=== PATIENT | female | born 1990 | race Caucasian/White ===

== ENCOUNTER 2023-10-08 20:45 | Emergency (ER) | payer SELFPAY ==
[2023-10-08 20:45] VITALS: BMI 19.6
[2023-10-08 20:47] VITALS: BP 124/84
[2023-10-08] MEDS: TORADOL 30 MG IV (21:24)
[2023-10-08 21:26] LABS: % Basophils 0.5 % (0-2); % Eosinophils 0.5 % (0-6); % Immature Granulocytes 0.3 % (0-0.5); % Lymphocytes 11.5 % (20.5-51.1); % Monocytes 4.4 % (1.7-9.3); % Neutrophils 82.8 % (42.2-75.2); Absolute Lymphocytes 0.8 10^3/uL (1.2-3.4); Absolute Monocytes 0.3 10^3/uL (0.1-0.6); Hematocrit 39.7 % (37.0-47.0); Hemoglobin 14.3 g/dL (12.0-16.0); Mean Corpuscular Hgb 31.3 pg (27.0-31.0); Mean Corpuscular Volume 86.9 fL (81.0-99.0); Mean Platelet Volume 8.7 fL (7.4-10.4); Nucleated Red Blood Cells % 0 %; Platelet Count 277 10^3/uL (130-400); Red Blood Cell Count 4.57 10^6/uL (4.20-5.40); Red Cell Dist. Width 11.8 % (11.5-14.5); White Blood Cell Count 7.3 10^3/uL (4.8-10.8)
[2023-10-08] MEDS: NSS 1000 IV (21:28)
[2023-10-08] MEDS: OMNIPAQUE 50 ML PO (21:32)
[2023-10-08] MEDS: ZOFRAN 4 MG IV ×2 (21:35→22:47)
[2023-10-08 21:37] LABS: HCG, Serum Qualitative Screen Negative
[2023-10-08 21:42] LABS: ALT (SGPT) 19 U/L (0-35); AST (SGOT) 23 U/L (14-36); Albumin 4.4 g/dl (3.5-5.0); Alkaline Phosphatase 78 U/L (38-126); Blood Urea Nitrogen 17 mg/dl (7-17); Calcium 9.4 mg/dl (8.4-10.2); Carbon Dioxide 25 mmol/L (22-30); Chloride 98 mmol/L (98-107); Glucose 102 mg/dl (70-99); Potassium 3.3 mmol/L (3.5-5.1); Sodium 136 mmol/L (135-145); Total Bilirubin 1.5 mg/dl (0.2-1.3); Total Protein 7.2 g/dl (6.3-8.2); eGFR > 60.00
[2023-10-08] MEDS: OFIRMEV 1000 MG IV (22:48)
[2023-10-08 23:20] LABS: Urine Albumin Negative (Neg - Trace); Urine Bilirubin 1+ (Negative); Urine Character Clear (Clear); Urine Color Yellow; Urine Glucose Negative (Negative); Urine Ketone Trace (Negative); Urine Leukocyte Negative (Negative); Urine Nitrite Negative (Negative); Urine Occult Blood Negative (Negative); Urine Urobilinogen 1+ (Neg - 1+); Urine pH 6.5 (5.0-9.0)
[2023-10-09 00:30] VITALS: BP 114/55
--- NOTE | 2023-10-09 00:48 | ED.GENMED ---
History of Present Illness
General
Chief Complaint: Abdominal Pain
Source: patient
Exam Limitations: none
Time Seen by Provider: 10/08/23 20:59
Travel History
Have you had any contact with someone who has COVID-19?: No
Do you have any symptoms of coronavirus? Fever > 100 degrees, chills, cough, shortness of breath, sore throat, loss of taste or smell, muscle aches, or headache?: No
History of Present Illness
History of Present Illness:
This is a 32 year old female that comes in with c/o right lower abd pain and vomiting. States that this started on Monday. States that she got up fine and after eating about 30 min she started with vomiting. States that the pain was on and off all
day. States that she has not been able to keep anything down. State that she had severe pain, felt hoe and felt like she was going to pass out. States that she has chills, nausea, vomiting, and diarrhea. States that she was also lightheaded. Denies
any fever, chest pain, SOB, headache, urinary burning.
Past History
Past History
ED Past Medical History: HTN and Other (Renal calculus)
ED Past Surgical History: Gynecological (tubal ) and Other (Hernia repair)
Social History
Tobacco: Non-smoker
Alcohol: None
Personal: Single
Living: with family
Review of Systems
Review of Systems
All Other Systems: ROS reviewed and negative except as documented in HPI and ROS
Constitutional: Reports chills; Denies fever
EENT: Reports no symptoms
Respiratory: Denies cough or trouble breathing
Cardiac: Reports no symptoms; Denies chest pain
ABD/GI: Reports abdominal pain, nausea, vomiting and diarrhea
: Reports no symptoms; Denies dysuria, frequency or urgency
Musculoskeletal: Reports no symptoms
Skin: Reports no symptoms
Neurological: Reports other (Lightheaded); Denies headache
Psychiatric: Reports no symptoms
Phy Exam
General Physical Exam
General Presentation: mild distress
General age: appears stated age
General Skin: warm and dry
General Habitus: normal
General Mental: alert
General Hydration: appears well hydrated
ENT Exam
ENT Exam: TM's normal, pharynx normal and neck supple
Eye Exam
Eye Exam: EOMI
Cardiovascular Exam
Cardiovascular Exam: regular rate/rhythm, no edema, no murmur and normal peripheral pulses
Pulmonary Exam
Pulmonary Exam: lungs clear, no respiratory distress, no rales, chest non tender, no crackles, no rhonchi, no wheezing and no cough
Gastrointestinal Exam
Gastrointestinal Exam: normal bowel sounds, soft, no organomegaly, no pulsatile mass, non distended and tender (Right lower abd tenderness with palpation)
Musculoskeletal Exam
Musculoskeletal Exam: full ROM and no edema
Skin Exam
Skin Exam: normal color, warm/dry, no rash and no petechia
Psychiatric Exam
Psychiatric Exam: normal mood/affect
Course
Orders/Labs/Results
Orders:
Orders
10/08/23 21:12
0.9% Sodium Chloride 1000 ml [Nss] 1,000 ml IV BOLUS
Iohexol [Omnipaque] See Protocol PO NOW STA
Ketorolac [Toradol] 30 mg IV NOW STA
Test Result ONCE
10/08/23 21:17
Complete Blood Count/With Diff Urgent
Comprehensive Metabolic Panel Urgent
HCG, Serum Qualitative Screen Urgent
10/08/23 21:21
Ondansetron Injectable [Zofran] 4 mg .ROUTE .STK-MED ONE
10/08/23 21:28
Ondansetron Injectable [Zofran] 4 mg IV NOW STA
10/08/23 22:43
Acetaminophen 1000MG/100Ml [Ofirmev] 1,000 mg in 100 ml .ROUTE .STK-MED
10/08/23 22:45
Ondansetron Injectable [Zofran] 4 mg IV NOW STA
10/08/23 22:48
Acetaminophen 1000MG/100Ml [Ofirmev] 1,000 mg IV NOW STA
10/08/23 23:06
Urinalysis Reflex To Culture Urgent
Date Specimen was Collected: 10/08/23
Time Specimen was Collected: 23:00
10/09/23 00:00
CT Abd/pel W Iv And Oral Contr Urgent
Reason For Exam: Right lower abd pain
10/09/23 00:53
US Pelvis Only (non-obstetric) Urgent
Comment:
Reason For Exam: right lower abd pain
Abnormal Lab Results
10/08/23 10/08/23
21:17 23:06
MCH 31.3 H pg
(27.0-31.0)
Absolute Lymphs (auto) 0.8 L 10^3/uL
(1.2-3.4)
Neutrophils % 82.8 H %
(42.2-75.2)
Lymphocytes % 11.5 L %
(20.5-51.1)
Potassium 3.3 L mmol/L
(3.5-5.1)
Glucose 102 H mg/dl
(70-99)
Total Bilirubin 1.5 H mg/dl
(0.2-1.3)
Urine Ketones Trace A
(Negative)
Urine Bilirubin 1+ A
(Negative)
10/08/23 21:17
10/08/23 21:17
Potassium slightly low, Glucose nonfasting. Total pedrito slightly elevated. Urine negative for infection. HCG negative.
Vital Signs
Initial and Last Documented VS:
Initial Vital Signs
Temp Pulse Resp BP Pulse Ox
99.1 F 111 24 124/84 96
10/08/23 20:47 10/08/23 20:47 10/08/23 20:47 10/08/23 20:47 10/08/23 20:47
Last Documented Vital Signs
Temp Pulse Resp BP Pulse Ox
99.1 F 71 14 106/64 96
10/08/23 20:47 10/09/23 01:00 10/08/23 21:15 10/09/23 01:00 10/09/23 01:00
MDM/Problems Addressed
Differential Diagnosis Includes:
Appendicitis, Ovarian cyst, Ovarian cyst rupture. Renal calculus
MDM/Problems Addressed:
This is a 32 year old female that comes in with c/o right lower abd pain. States that this started on Monday and was on and off all day. States that she has nausea and vomiting with diarrhea.
Will get labs CT and Ultrasound. Will medicate for pain and given IV fluids.
Back into see patient again. Told patient earlier that her CT was normal. US is also normal. Blood work shows a slightly low Potassium Encouraged patient to eat bananas and green leafy vegetables. Patient can use Tylenol or Ibuprofen for pain.
Follow up with the family doctor for recheck. Patient to return with any concerns.
Chronic conditions affecting care:
NA
Acute Exacerbation and/or Progression of Chronic Illness:
NA
*Radiology
Radiology exam reviewed: radiology read reviewed (CT night hawk- No acute abnormality within the abd or pelvis. No bowel obstruction. Normal gallbladder and appendix. Incidentals: No obstructive uropathy. No hepatic or pancreatic mass. No abd aortic
aneurysm. No acute osseous abnormality. No acute abnormality within the visualized lungs. No acute ) and all reviewed NAD by ED Provider (Ct cont- No acute abnormality within the visualized soft tissue. US- night hawk- No evidence of ovarian
torsion. Normal flow to the bilateral ovaries. No free fluid identified. )
*Pulse Oximetry
Patient hypoxic: no
*EKG
Interpreted by ED Provider?: NA
Rate: EKG- N/A
*Software Tools Developer Interpretation
Rate: normal
Heart Rate: 80
Rhythm: sinus
*Critical Care Note
Total Time (30-74mins, 75-104mins- exclusive of procedures): Not Applicable
ED Attending Note
-
Portions of this chart may have been created with voice recognition software.� Occasional wrong word or��sound alike� substitutions may have occurred due to the inherent limitations of voice recognition software.
Discharge Plan
Departure
Patient Disposition: Home (Routine Discharge)
Date of Disposition: 10/09/23
Time of Disposition: 01:37
Patient with high blood pressure during this ER visit?: No
Condition: Good
Covid-19: Not Applicable
Discharge Problem:
Right lower quadrant abdominal pain
Instructions: Abdominal Pain
Referrals:
UNKNOWN - PT DOES,NOT KNOW [Family Provider] -
Stand Alone Forms: Return to Work
Activity Restrictions/Additional Instructions:
As discussed, your blood work shows that your potassium is slightly low. Please eat some banana's daily and increase the green leafy vegetable. Your CT of the abd pelvis is normal along with your Ultrasound. There is no obvious reason for your
pain. You may use Tylenol or Ibuprofen for pain. Follow up with the family doctor for recheck. IF YOU HAVE ANY OTHER CONCERNS PLEASE RETURN TO THE EMERGENCY ROOM.
Interventions
Interventions:
*Risk Screen - Suicide Last Done: 10/08/23 20:47
*General Assessment Last Done: 10/08/23 20:47
*Neglect/Abuse Screening Last Done: 10/08/23 20:47
ED- Fall Risk Assessment Last Done: 10/08/23 21:08
*ED COVID-19 Vaccine History Last Done: 10/09/23 02:11
*Nursing Disposition Last Done: 10/09/23 02:11
PJ-Nemctn-Fxoepvnkzf Assessment Last Done: 10/08/23 21:08
Discharge Date and Time
Discharge Date/Time: 10/09/23 02:13
[2023-10-09 01:00] VITALS: BP 106/64
== END 2023-10-09 02:13 | disposition home or self-care (01) ==
LOC: EMR 20:45
PROVIDERS: Clinical Nurse Specialist Family Health; EMERGENCY PHYSICIAN Student in an Organized Health Care Education/Training Program
DX: R10.31 Right lower quadrant pain (principal)
CPT/HCPCS: 99285; 96374; 96375; 96361; 96376; 74177; 76856; 80053; 81003; 84703; 85025; Q9967

== ENCOUNTER 2024-04-29 19:53 | Emergency (ER) | payer OTHER, SELFPAY ==
[2024-04-29 20:06] VITALS: BP 133/79
[2024-04-29 20:21] LABS: % Basophils 0.8 % (0-2); % Eosinophils 1.3 % (0-6); % Immature Granulocytes 0.3 % (0-0.5); % Lymphocytes 20.1 % (20.5-51.1); % Monocytes 5.2 % (1.7-9.3); % Neutrophils 72.3 % (42.2-75.2); Absolute Basophils 0.1 10^3/uL (0-0.2); Absolute Eosinophils 0.1 10^3/uL (0-0.7); Absolute Lymphocytes 1.6 10^3/uL (1.2-3.4); Absolute Monocytes 0.4 10^3/uL (0.1-0.6); Absolute Neutrophils 5.6 10^3/uL (1.4-6.5); Hematocrit 36.5 % (37.0-47.0); Hemoglobin 12.9 g/dL (12.0-16.0); Mean Corp Hgb Conc. 35.3 g/dL (33.0-37.0); Mean Corpuscular Hgb 30.7 pg (27.0-31.0); Mean Corpuscular Volume 86.9 fL (81.0-99.0); Mean Platelet Volume 9.4 fL (7.4-10.4); Nucleated Red Blood Cells % 0 %; Platelet Count 251 10^3/uL (130-400); Red Cell Dist. Width 11.9 % (11.5-14.5); White Blood Cell Count 7.7 10^3/uL (4.8-10.8)
[2024-04-29 20:50] LABS: ALT (SGPT) 15 U/L (0-35); AST (SGOT) 23 U/L (14-36); Albumin 4.3 g/dl (3.5-5.0); Alkaline Phosphatase 75 U/L (38-126); Blood Urea Nitrogen 23 mg/dl (7-17); Calcium 9.3 mg/dl (8.4-10.2); Carbon Dioxide 25 mmol/L (22-30); Chloride 102 mmol/L (98-107); Glucose 102 mg/dl (70-99); Potassium 3.6 mmol/L (3.5-5.1); Sodium 136 mmol/L (135-145); Total Bilirubin 0.4 mg/dl (0.2-1.3); Total Protein 6.9 g/dl (6.3-8.2); eGFR > 60.00
--- NOTE | 2024-04-29 22:29 | ED.GENMED ---
History of Present Illness
General
Chief Complaint: Skin Problem
Source: patient
Exam Limitations: none
Time Seen by Provider: 04/29/24 22:23
History of Present Illness
History of Present Illness:
See MDM
Past History
Past History
ED Past Medical History: HTN and Other (Renal calculus)
ED Past Surgical History: Gynecological (tubal ) and Other (Hernia repair)
Social History
Tobacco: Non-smoker
Alcohol: None
Personal: Single
Living: with family
Phy Exam
Physical Exam
Physical Exam:
See MDM
Course
Orders/Labs/Results
Orders:
Orders
04/29/24 20:14
Complete Blood Count/With Diff Urgent
Comprehensive Metabolic Panel Urgent
04/29/24 22:27
Amoxicillin 875 mg/Clav 125 mg [Augmentin 875 mg/125 mg] 1 tablet PO NOW STA
Tetanus/Diphth/Acelpertussis [Adacel] 0.5 ml IM .ONCE ONE
Abnormal Lab Results
04/29/24
20:14
Hct 36.5 L %
(37.0-47.0)
Lymphocytes % 20.1 L %
(20.5-51.1)
BUN 23 H mg/dl
(7-17)
Creatinine 1.1 H mg/dL
(0.6-1.0)
Glucose 102 H mg/dl
(70-99)
04/29/24 20:14
04/29/24 20:14
Vital Signs
Initial and Last Documented VS:
Initial Vital Signs
Temp Pulse Resp BP Pulse Ox
98.1 F 76 18 133/79 98
04/29/24 20:06 04/29/24 20:06 04/29/24 20:06 04/29/24 20:06 04/29/24 20:06
Last Documented Vital Signs
Temp Pulse Resp BP Pulse Ox
98.1 F 76 18 133/79 98
04/29/24 20:06 04/29/24 20:06 04/29/24 20:06 04/29/24 20:06 04/29/24 20:06
MDM/Problems Addressed
Differential Diagnosis Includes:
HPI and MDM Narrative:
33-year-old female presenting for swelling of her right hand from a cat bite. She was bit 24 hours ago and was nervous based on the amount of swelling. Patient was helping her elderly friend move some of her feral cat from 1 room to another room.
The cat bit her on the dorsum of her right hand and the proximal aspect of her left index finger. She denies fevers but states the area is throbbing. She is unsure about her tetanus shot and the kittens rabies shots. Patient states she can
reliably keep an eye on this cat to assess for any evidence of rabies or early over the next 2 weeks
Physical exam
General: Well appearing and non-toxic
HEENT: protecting airway
Neck: appears supple
CV: No evidence of cyanosis
Resp: No accessory muscle use
Abd: Non-distended
Extremities: Mild swelling to dorsum of right hand
Neuro: alert
Psych: Normal affect
Skin: 5 cm circumferential erythema to dorsum of right hand with 2 distinct fang bites. Extremity neurovascular intact. Small bite noted to proximal left index finger with mild erythema
Problems Addressed including Acute and Chronic Conditions affecting care:
1. Cat bite
Acuity: acute
Prognosis: unstable
Details: Given the progression of erythema over the past 24 hours, will start Augmentin. Tetanus updated. Will refrain from rabies given that she can keep an eye on the cat. She was given strict return precautions
Differential Diagnosis (but not limited to): cellulitis, cat bite, developing abscess
Testing considered:
Drug therapy (if applicable): OTC meds, please see d/c instruction regarding Rx drugs
Amount and/or Complexity of Data Reviewed
Clinical info obtained from: Patient
External data reviewed: N/A
Labs I independently reviewed (but not limited to): wbc normal
Radiology: N/A
Pulse Ox: not hypoxic
EKG independently reviewed: N/A
Application Development Liaison: N/A
Critical Care: N/A
Risk of Complication:
Social Determinants of health: Good social support
Discussed with other providers: N/A
Escalation of Care includes Admit/Obs: After being observed in the Emergency Department, pt stable for discharge.
Occasional wrong word or 'sound a like' substitutions may have occurred due to the inherent limitations of voice recognition software. Read the chart carefully and recognize, using context, where substitutions have occurred.
*Critical Care Note
Total Time (30-74mins, 75-104mins- exclusive of procedures): Not Applicable
ED Attending Note
-
Portions of this chart may have been created with voice recognition software.� Occasional wrong word or��sound alike� substitutions may have occurred due to the inherent limitations of voice recognition software.
Discharge Plan
Departure
Patient Disposition: Home (Routine Discharge)
Date of Disposition: 04/29/24
Time of Disposition: 22:34
Patient with high blood pressure during this ER visit?: No
Discharge Problem:
Cat bite of right hand with infection
Instructions: Animal Bites ED
Prescriptions:
New
amoxicillin-pot clavulanate 875-125 mg tablet
1 tab PO BID Qty: 14 0RF
Referrals:
NONE,* [Family Provider] -
Activity Restrictions/Additional Instructions:
Watch for worsening signs of infection: fever over 100.5', increasing pain, red streaks around wound, swelling, or increasing drainage of pus. If any of these happen, return to ED promptly. Make sure that you take all your antibiotics as directed
and finish your prescription even if you feel better before the bottle is empty
Interventions
Interventions:
*Risk Screen - Suicide Last Done: 04/29/24 20:06
*General Assessment Last Done: 04/29/24 20:06
*Neglect/Abuse Screening Last Done: 04/29/24 20:06
ED-Skin Assessment Last Done: 04/29/24 22:04
Discharge Date and Time
Print Language: HEBREW
[2024-04-29] MEDS: AUGMENTIN 875 MG/125 MG 1 TABLET PO (22:48)
[2024-04-29] MEDS: ADACEL 0.5 ML IM (22:50)
== END 2024-04-29 23:13 | disposition home or self-care (01) ==
LOC: EMR 19:53
PROVIDERS: EMERGENCY PHYSICIAN Student in an Organized Health Care Education/Training Program
DX: S61.451A Open bite of right hand, initial encounter (principal); B99.9 Unspecified infectious disease; W55.01XA Bitten by cat, initial encounter; Z23 Encounter for immunization; I10 Essential (primary) hypertension; Z87.442 Personal history of urinary calculi; Z88.5 Allergy status to narcotic agent
CPT/HCPCS: 99283; 90471; 80053; 85025; 90715

== ENCOUNTER 2024-06-10 18:14 | Emergency (ER) | payer OTHER, SELFPAY ==
[2024-06-10 18:15] VITALS: BP 158/84
--- NOTE | 2024-06-10 18:32 | ED.PDOC.TRB ---
ED Provider Triage
-
Patient seen by provider in Triage?: Seen in Triage
Attestation: A medical screening examination has been initiated by a qualified medical provider. Based on the assessment performed at this time, it has been determined that an emergent medical condition may exist and the patient has been informed
that further medical evaluation and possible additional diagnostic testing may be needed.
HPI: 33yoF here with a migraine x 5 days. No relief with OTC/prescription meds. Never had a headache last this long before. Now having chest pain with R upper arm numbness today.
GENERAL: Alert , in no apparent distress
EYE: No visual abnormalities.
NECK: Trachea midline
ENT: No visible abnormalities.
LUNGS: No acute respiratory distress
NEUROLOGICAL: Alert and oriented
SKIN: Skin intact. No visible changes.
MUSCULOSKELETAL: Moving extremities normally
PSYCH: Normal and appropriate interaction.
This is a medical evaluation conducted in person to initiate diagnostic evaluation and provide initial therapeutics. Please see further documentation by the treating clinician.
Cardiac labs, EKG, and CXR ordered.
[2024-06-10 18:39] LABS: % Basophils 0.7 % (0-2); % Eosinophils 1.8 % (0-6); % Immature Granulocytes 0.2 % (0-0.5); % Lymphocytes 27.1 % (20.5-51.1); % Monocytes 7.2 % (1.7-9.3); Absolute Eosinophils 0.1 10^3/uL (0-0.7); Absolute Lymphocytes 1.6 10^3/uL (1.2-3.4); Absolute Monocytes 0.4 10^3/uL (0.1-0.6); Absolute Neutrophils 3.8 10^3/uL (1.4-6.5); Hematocrit 36.2 % (37.0-47.0); Hemoglobin 12.8 g/dL (12.0-16.0); Mean Corp Hgb Conc. 35.4 g/dL (33.0-37.0); Mean Corpuscular Hgb 31.6 pg (27.0-31.0); Mean Corpuscular Volume 89.4 fL (81.0-99.0); Mean Platelet Volume 8.8 fL (7.4-10.4); Nucleated Red Blood Cells % 0 %; Platelet Count 269 10^3/uL (130-400); Red Blood Cell Count 4.05 10^6/uL (4.20-5.40); Red Cell Dist. Width 11.8 % (11.5-14.5)
[2024-06-10 19:01] LABS: HCG, Serum Qualitative Screen Negative
[2024-06-10 19:08] LABS: ALT (SGPT) 17 U/L (0-35); AST (SGOT) 22 U/L (14-36); Albumin 4.2 g/dl (3.5-5.0); Alkaline Phosphatase 63 U/L (38-126); Blood Urea Nitrogen 16 mg/dl (7-17); Calcium 9.2 mg/dl (8.4-10.2); Carbon Dioxide 28 mmol/L (22-30); Chloride 103 mmol/L (98-107); Glucose 58 mg/dl (70-99); Potassium 3.8 mmol/L (3.5-5.1); Sodium 142 mmol/L (135-145); Total Bilirubin 0.4 mg/dl (0.2-1.3); Total Protein 6.7 g/dl (6.3-8.2); eGFR > 60.00
[2024-06-10 19:16] LABS: Troponin I < 0.012 ng/ml
[2024-06-10 20:10] LABS: Glucose - Point of Care 132 mg/dl (70-99)
[2024-06-10 21:07] VITALS: BP 119/80; BMI 24.9
--- NOTE | 2024-06-10 22:09 | EDRN ---
Updated patient on the delay on a provider and apologized for her wait, patient is doing okay, provided a blanket for her and her daughter
[2024-06-10] MEDS: NSS 1000 IV (22:26)
[2024-06-10] MEDS: BENADRYL 25 MG IV (22:26)
[2024-06-10] MEDS: TORADOL 30 MG IV (22:26)
[2024-06-10] MEDS: COMPAZINE 5 MG IV (22:26)
[2024-06-10 22:35] VITALS: BP 100/84
--- NOTE | 2024-06-10 23:49 | ED.GENMED ---
History of Present Illness
General
Chief Complaint: Headache
Source: patient
Exam Limitations: none
Time Seen by Provider: 06/10/24 22:04
Nursing documentation reviewed up to this point in time: agreed with
History of Present Illness
History of Present Illness:
This is a 33-year-old woman who has history of migraine headaches generally well-controlled, suffers with migraine headache perhaps 3-4 times per year. Follows with her PCP as prescribed sumatriptan hand for as needed headaches. She complains of
her typical migraine headache that began 5 days ago, mild initially in onset, generalized to posterior head with occasional radiation to her forehead. Headache has persisted over the past 5 days, unrelieved with Imitrex. She is also noted some
intermittent right upper arm pain, aching in nature as well as nausea without vomiting and intermittent dull chest discomfort lower substernal region. Today she noticed intermittent black dots in her vision but no loss of vision. She denies neck
pain nor back pain, no fever no chills, no nasal congestion nor sore throat but she does note mild URI symptoms with dry cough without fever 1 week ago that resolved within 24 hours.
She denies risk of last menstrual period normal and on time 1-1/2 weeks ago.
She was evaluated in this ED April 25 after suffering a cat bite to her finger. Was placed on antibiotic and given a Tdap. Bite wound inflammation promptly resolved. She states the cat has remained well and healthy.
Her only daily medication is Lexapro.
Past History
Past History
ED Past Medical History: HTN and Other (Renal calculus; migraine headaches)
ED Past Surgical History: Gynecological (tubal ) and Other (Hernia repair)
Social History
Tobacco: Non-smoker
Alcohol: None
Personal: Single
Living: with family
Employment: Not employed
Family History
Family History: Other (Noncontributory)
Phy Exam
Physical Exam
Physical Exam:
GENERAL: 33-year-old woman appears her stated age, bright and alert, pleasant, appears in no acute distress.
EYE: pupils equal and reactive. Extraocular muscles intact anicteric
NECK: Supple, nontender, no meningismus, no significant adenopathy.
ENT: posterior pharynx is clear, oral mucosa is moist. TM clear b/l, nares have moderately boggy pale blue turbinates.
CARDIAC: Regular rate and rhythm. no murmur.
LUNGS: Clear breath sounds bilaterally, no acute respiratory distress, no wheezes/rales/rhonchi
ABDOMEN: Soft, nondistended, without focal tenderness, no r/g, no cvat. normoactive BS.
NEUROLOGICAL: Alert and oriented x3, no focal neuro deficits. Gait is steady.
SKIN: Warm and dry, normal color, skin intact. No rash.
MUSCULOSKELETAL: No C/C/E. peripheral pulses are full and equal b/l. No palpable tenderness.
PSYCH: Normal and appropriate interaction.
Course
Orders/Labs/Results
Orders:
Orders
06/10/24 18:15
EKG [Electrocardiogram (*1)] Urgent
Reason for Study: Chest Pain
06/10/24 18:16
EKG- Treatment ONCE
06/10/24 18:24
Test Result ONCE
06/10/24 18:32
Complete Blood Count/With Diff Urgent
Comprehensive Metabolic Panel Urgent
HCG, Serum Qualitative Screen Urgent
Troponin I Urgent
06/10/24 18:36
CR Chest - 2 Views Urgent
Comment:
Reason For Exam: CP
06/10/24 20:00
Bedside Glucose- Treatment ONCE
06/10/24 22:22
0.9% Sodium Chloride 1000 ml [Nss] 1,000 ml IV BOLUS
Diphenhydramine [Benadryl] 25 mg IV NOW STA
Ketorolac [Toradol] 30 mg IV NOW STA
Prochlorperazine [Compazine] 5 mg IV NOW STA
06/11/24 00:40
Dexamethasone Sod Phosphate [Decadron] 10 mg IV NOW STA
Abnormal Lab Results
06/10/24 06/10/24
18:32 20:08
RBC 4.05 L 10^6/uL
(4.20-5.40)
Hct 36.2 L %
(37.0-47.0)
MCH 31.6 H pg
(27.0-31.0)
Glucose 58 L mg/dl
(70-99)
POC Glucose 132 H mg/dl
(70-99)
06/10/24 18:32
06/10/24 18:32
Vital Signs
Initial and Last Documented VS:
Initial Vital Signs
Temp Pulse Resp BP Pulse Ox
98 F 79 16 158/84 98
06/10/24 18:15 06/10/24 18:15 06/10/24 18:15 06/10/24 18:15 06/10/24 18:15
Last Documented Vital Signs
Temp Pulse Resp BP Pulse Ox
98 F 80 16 100/84 99
06/10/24 18:15 06/10/24 22:35 06/10/24 22:35 06/10/24 22:35 06/10/24 22:35
MDM/Problems Addressed
Differential Diagnosis Includes:
33-year-old with history of migraine headaches presents with migraine headache that began 5 days ago. Accompanied with some right upper arm pain, intermittent chest discomfort, nausea without vomiting.
Unrelieved with Imitrex.
Overall well in appearance. No focal neurodeficits. No risk factors for CAD nor thromboembolism.
EKG is unremarkable. Labs are unremarkable save for borderline low glucose. Troponin is normal. Chest x-ray is unremarkable.
I suspect exacerbation of migraine which may be exacerbated by allergic rhinitis versus recent URI.
Overall well in appearance. At this point no indication for CT of the head.
Will trial IV fluids, an IV dose of Compazine, Toradol, Benadryl.
Will continue to observe.
*Radiology
Radiology exam reviewed: radiology read reviewed (Chest x-ray is unremarkable.)
*Pulse Oximetry
Patient hypoxic: no
*EKG
Interpreted by ED Provider?: Yes
Interpretation: normal
Comparison EKG: no comparison EKG present
Rate: normal
Rhythm: sinus
Gonzales: normal axis
Interval: normal interval
QRS Pattern: normal QRS
Ischemia: no ischemia
*C2 Tactical Analysis Technician Interpretation
Rate: normal
Interpretation: normal
Rhythm: sinus
*Critical Care Note
Total Time (30-74mins, 75-104mins- exclusive of procedures): Not Applicable
Update Note
Update Note:
06/11/2024 0040 AM
Patient resting comfortably. Headache has resolved. No further arm discomfort.
Will give an IV dose of Decadron in an effort to prevent rebound/recurrent headache.
Discussed importance of remaining well-hydrated on a daily basis.
Prompt follow-up with PCP for recheck.
ED Attending Note
-
Portions of this chart may have been created with voice recognition software.� Occasional wrong word or��sound alike� substitutions may have occurred due to the inherent limitations of voice recognition software.
Discharge Plan
Departure
Patient Disposition: Home (Routine Discharge)
Date of Disposition: 06/11/24
Time of Disposition: 00:41
Patient with high blood pressure during this ER visit?: No
Condition: Good
Discharge Problem:
Headache, migraine, Nonspecific chest pain
Instructions: Migraines (DC)
Prescriptions:
No Action
amoxicillin-pot clavulanate 875-125 mg tablet
1 tab PO BID Qty: 14 0RF
Referrals:
UNKNOWN - PT DOES,NOT KNOW [Family Provider] -
Activity Restrictions/Additional Instructions:
Stay well-hydrated on a daily basis.
Call your family doctor tomorrow to schedule a prompt follow-up for recheck.
Interventions
Interventions:
*Risk Screen - Suicide Last Done: 06/10/24 20:15
*Neglect/Abuse Screening Last Done: 06/10/24 20:15
ED- Fall Risk Assessment Last Done: 06/10/24 20:15
ED- Neurological Assessment Last Done: 06/10/24 20:15
Discharge Date and Time
Print Language: FRENCH
--- NOTE | 2024-06-11 00:23 | EDRN ---
Patient is sleeping soundly, Dr. baez aware, daughter at bedside.
[2024-06-11] MEDS: DECADRON 10 MG IV (00:53)
[2024-06-11 01:02] VITALS: BP 98/64
== END 2024-06-11 01:04 | disposition home or self-care (01) ==
LOC: EMR 18:14
PROVIDERS: Physician Assistant; EMERGENCY PHYSICIAN Emergency Medicine
DX: G43.909 Migraine, unspecified, not intractable, without status migrainosus (principal); R07.89 Other chest pain
CPT/HCPCS: 99285; 96374; 96375 ×3; 96361; 71046; 80053; 82962; 84484; 84703; 85025; 93005

== ENCOUNTER 2024-07-26 19:30 | Emergency (ER) | payer OTHER, SELFPAY ==
[2024-07-26 19:31] VITALS: BP 138/91
--- NOTE | 2024-07-26 19:51 | ED.SKININJ ---
HPI-Injury
General
Chief Complaint: Skin Problem
Source: patient
Exam Limitations: none
Time Seen by Provider: 07/26/24 19:36
Nursing documentation reviewed up to this point in time: agreed with
History of Present Illness-Injury
Initial Injury comments:
33 yo female with local skin infection right lower abdominal wall started 2 days ago, went to and started on Keflex, has had 4 doses so far. Feels nauseous. States area is getting worse. Denies fever, felt chills.
Past History
Past History
ED Past Medical History: HTN and Other (Renal calculus; migraine headaches)
ED Past Surgical History: Gynecological (tubal ) and Other (Hernia repair)
Social History
Tobacco: Non-smoker
Alcohol: None
Personal: Single
Living: with family
Employment: Not employed
Family History
Family History: Other (Noncontributory)
Review of Systems
Review of Systems
Allergies reviewed?: Yes
All Other Systems: ROS reviewed and negative except as documented in HPI and ROS
Constitutional: Reports chills; Denies fever
ABD/GI: Reports nausea and diarrhea (today); Denies abdominal pain or vomiting
Skin: Reports other (skin infection right lower abdomen)
Phy Exam
Physical Exam
Physical Exam:
GENERAL: No acute distress. A&Ox3.
CONSTITUTIONAL: Afebrile.
RESPIRATORY: Regular respirations, nonlabored, lungs clear.
CARDIOVASCULAR: Regular rate and rhythm, no murmurs, no rubs.
GI: Soft, nontender, normal BS
MUSCULOSKELETAL: Moves with ease. Well perfused.
SKIN: Warm, dry, pink. Tender 5 x 3 area erythema right lower abdominal wall with central 1 cm abscess.
PSYCH: Normal mood and affect. Well kept, interactive and appropriate
NEUROLOGIC: Awake, alert and oriented. No focal neurological deficits
Course
Orders/Labs/Results
Orders:
Orders
07/26/24 19:45
Ondansetron Orally Disint [Zofran Odt (Orally Disintegrating)] 4 mg PO NOW STA
07/26/24 19:46
Doxycycline [Vibramycin] 100 mg PO NOW STA
07/26/24 19:50
Acetaminophen [Tylenol] 1,000 mg PO NOW STA
Vital Signs
Initial and Last Documented VS:
Initial Vital Signs
Temp Pulse Resp BP Pulse Ox
99 F 79 16 138/91 100
07/26/24 19:31 07/26/24 19:31 07/26/24 19:31 07/26/24 19:31 07/26/24 19:31
Last Documented Vital Signs
Temp Pulse Resp BP Pulse Ox
99 F 79 16 138/91 100
07/26/24 19:31 07/26/24 19:31 07/26/24 19:31 07/26/24 19:31 07/26/24 19:31
Procedures
Incision/Drainage/Joint Aspiration
R lower abdominal wall:
Anethesia: 1% Lidocaine with Epi
Preparation: cleaned with alcohol wipe
Type of procedure: incise (tiny 2-3 mm puncture, purulent drainage expressed) and drain
Nature of site: abscess
Description of abscess: less than 3cm
How much fluid was obtained?: small amount
Fluid description: purulent
Treatment: antibiotics started and bandaid applied
MDM/Problems Addressed
MDM/Problems Addressed:
33 yo female with local skin infection right lower abdominal wall started 2 days ago, went to and started on Keflex, has had 4 doses so far. Feels nauseous. States area is getting worse. Denies fever, felt chills.
Area consistent with small abscess, surrounding erythema
Area drained, Keflex DC'd, rx for Doxycycline sent to her pharmacy
*Critical Care Note
Total Time (30-74mins, 75-104mins- exclusive of procedures): Not Applicable
ED Attending Note
-
Portions of this chart may have been created with voice recognition software.� Occasional wrong word or��sound alike� substitutions may have occurred due to the inherent limitations of voice recognition software.
Discharge Plan
Departure
Patient Disposition: Home (Routine Discharge)
Date of Disposition: 07/26/24
Time of Disposition: 20:16
Patient with high blood pressure during this ER visit?: No
Condition: Good
Discharge Problem:
Abdominal wall abscess
Instructions: Wound Care (DC), Skin Abscess
Prescriptions:
New
doxycycline hyclate 100 mg capsule
100 mg PO BID Qty: 14 0RF
No Action
amoxicillin-pot clavulanate 875-125 mg tablet
1 tab PO BID Qty: 14 0RF
Referrals:
Penny Nieto, DO [Family Provider] - As needed
Activity Restrictions/Additional Instructions:
As we discussed, stop the Keflex.
I sent a prescription to your pharmacy for doxycycline 100 mg to take twice a day for 7 days.
See your doctor return here immediately if the area gets more red, more painful, you seems worse in any way.
Warm moist compresses to the area 3 times a day for the next 2 days, warm baths or shower water to run over the area.
Interventions
Interventions:
*Risk Screen - Suicide Last Done: 07/26/24 19:31
*General Assessment Last Done: 07/26/24 19:31
*Neglect/Abuse Screening Last Done: 07/26/24 19:31
ED- Fall Risk Assessment Last Done: 07/26/24 20:35
*ED COVID-19 Vaccine History Last Done: 07/26/24 20:35
*Nursing Disposition Last Done: 07/26/24 20:36
ED-Skin Assessment Last Done: 07/26/24 20:35
Discharge Date and Time
Discharge Date/Time: 07/26/24 20:37
Print Language: AZERI
[2024-07-26] MEDS: TYLENOL 1000 MG PO (19:59)
[2024-07-26] MEDS: VIBRAMYCIN 100 MG PO (19:59)
[2024-07-26] MEDS: ZOFRAN ODT (ORALLY DISINTEGRATING) 4 MG PO (19:59)
== END 2024-07-26 20:37 | disposition home or self-care (01) ==
LOC: EMR 19:30
PROVIDERS: EMERGENCY PHYSICIAN Emergency Medicine; FAMILY PHYSICIAN Family Medicine
DX: L02.211 Cutaneous abscess of abdominal wall (principal)
CPT/HCPCS: 99283; 10060

== ENCOUNTER 2025-03-17 16:37 | Emergency (ER) | payer OTHER, SELFPAY ==
[2025-03-17 16:47] VITALS: BP 121/80
--- NOTE | 2025-03-17 18:32 | ED.MUSCINJ ---
HPI-Injury
General
Chief Complaint: Musculo-Skeletal Complaint
Source: patient
Exam Limitations: none
Time Seen by Provider: 03/17/25 18:10
Nursing documentation reviewed up to this point in time: agreed with
History of Present Illness-Injury
Is this injury a work related problem?: No
Is pt an associate of [facility]/[place]?: No
Initial Injury comments:
Patient states she developed sudden onset of pain to right posterior ribs after sneezing. Incident occurred this afternoon. Brought self to ED for eval.
Past History
Past History
ED Past Medical History: HTN and Other (Renal calculus; migraine headaches)
ED Past Surgical History: Gynecological (tubal ) and Other (Hernia repair)
Social History
Tobacco: Non-smoker
Alcohol: None
Personal: Single
Living: with family
Employment: Not employed
Family History
Family History: Other (Noncontributory)
Review of Systems
Review of Systems
Allergies reviewed?: Yes
All Other Systems: ROS reviewed and negative except as documented in HPI and ROS
Constitutional: Reports no symptoms
EENT: Reports no symptoms
Respiratory: Reports no symptoms
Cardiac: Reports no symptoms
ABD/GI: Reports no symptoms
Musculoskeletal: Reports joint pain (pain to right posterior ribs)
Skin: Reports no symptoms
Neurological: Reports no symptoms
Psychiatric: Reports no symptoms
Musculoskeletal Injury Exam
Musculoskeletal Injury Exam
Right Posterior Ribs:
Pain with Movement?: Moderate
Tender to palpation?: Moderate
Soft tissue swelling?: None
External deformity and angulation?: None
Joint effusion?: None
Contusion?: None
Hematoma-local bleeding into tissue?: None
Strain- Sprain- Tear (Connective tissue injury)?: Moderate
Crepitus with movement?: No
Joint instability?: No
Malalignment/deformity?: No
Range of motion: Limited
Distal skin color and temperature: normal-warm & good color
Capillary Refill: normal
Normal distal neurovascular exam?: Yes
Phy Exam
General Physical Exam
General Presentation: well appearing and mild distress
General age: appears stated age
General Skin: warm and dry
General Habitus: normal
General Mental: alert
General Hydration: appears well hydrated
Cardiovascular Exam
Cardiovascular Exam: regular rate/rhythm and no edema
Pulmonary Exam
Pulmonary Exam: lungs clear and no respiratory distress
Musculoskeletal Exam
Musculoskeletal Exam: neuro vasc intact
Skin Exam
Skin Exam: normal color, warm/dry and no rash
Psychiatric Exam
Psychiatric Exam: normal mood/affect
Injury Course
Orders/Labs/Results
Orders:
Orders
03/17/25 16:49
CR Ribs-right 3 Vw W/pa Chest* Urgent
Comment:
Reason For Exam: rib pain
03/17/25 18:30
Ibuprofen [Motrin] 600 mg PO NOW STA
*Radiology
Radiology exam reviewed: radiology read reviewed
*Pulse Oximetry
SaO2: 98
Oxygen Mode of Delivery: Room air
Patient hypoxic: no
*Critical Care Note
Total Time (30-74mins, 75-104mins- exclusive of procedures): Not Applicable
Update Note
Update Note:
Patient to ED for eval of right posterior rib pain after sneezing today. Xray neg for fx, pneumothorax. LCTA. Pain with movement, reproducible. Recommend ibuprofen q6prn, ice, follow up with PCP. Given instructions on s/s to return to ED and
she is agreeable to paln
ED Attending Note
-
Portions of this chart may have been created with voice recognition software.� Occasional wrong word or��sound alike� substitutions may have occurred due to the inherent limitations of voice recognition software.
Discharge Plan
Departure
Patient Disposition: Home (Routine Discharge)
Date of Disposition: 03/17/25
Time of Disposition: 18:30
Patient with high blood pressure during this ER visit?: No
Condition: Good
Covid-19: Not Applicable
Discharge Problem:
Chest wall pain
Instructions: Muscle and Bone Pain (DC), Sprain (DC), Ibuprofen, Using Cold for Pain
Prescriptions:
No Action
amoxicillin-pot clavulanate 875-125 mg tablet
1 tab PO BID Qty: 14 0RF
doxycycline hyclate 100 mg capsule
100 mg PO BID Qty: 14 0RF
Activity Restrictions/Additional Instructions:
Follow up with your family doctor
Interventions
Interventions:
*Risk Screen - Suicide Last Done: 03/17/25 18:34
*General Assessment Last Done: 03/17/25 16:47
*Neglect/Abuse Screening Last Done: 03/17/25 18:34
*ED COVID-19 Vaccine History Last Done: 03/17/25 18:34
Discharge Date and Time
Print Language: MEXICAN
[2025-03-17 18:34] VITALS: BP 118/69
[2025-03-17] MEDS: MOTRIN 600 MG PO (18:43)
== END 2025-03-17 18:50 | disposition home or self-care (01) ==
LOC: EMR 16:37
PROVIDERS: EMERGENCY PHYSICIAN Emergency Medicine
DX: R07.89 Other chest pain (principal); R07.81 Pleurodynia; I10 Essential (primary) hypertension; F41.9 Anxiety disorder, unspecified; F32.A Depression, unspecified; Z87.442 Personal history of urinary calculi; Z88.5 Allergy status to narcotic agent
CPT/HCPCS: 99283; 71101

== ENCOUNTER 2025-06-07 15:34 | Emergency (ER) | payer OTHER, SELFPAY ==
[2025-06-07 15:36] VITALS: BP 124/90
[2025-06-07 18:02] VITALS: BP 126/79
[2025-06-07] MEDS: ZOFRAN 4 MG IV ×2 (18:04→21:16)
[2025-06-07] MEDS: NSS 1000 IV (18:04)
[2025-06-07 18:12] LABS: Hematocrit 40.6 % (37.0-47.0); Hemoglobin 14.1 g/dL (12.0-16.0); Mean Corp Hgb Conc. 34.7 g/dL (33.0-37.0); Mean Corpuscular Volume 85.8 fL (81.0-99.0); Nucleated Red Blood Cells % 0 %; Platelet Count 296 10^3/uL (130-400); Red Cell Dist. Width 11.9 % (11.5-14.5)
[2025-06-07 18:47] LABS: HCG, Serum Qualitative Screen Negative
[2025-06-07 18:51] LABS: ALT (SGPT) 18 U/L (0-35); AST (SGOT) 25 U/L (14-36); Albumin 4.8 g/dl (3.5-5.0); Alkaline Phosphatase 81 U/L (38-126); Blood Urea Nitrogen 13 mg/dl (7-17); Calcium 9.5 mg/dl (8.4-10.2); Carbon Dioxide 26 mmol/L (22-30); Chloride 106 mmol/L (98-107); Glucose 91 mg/dl (70-99); Potassium 4.1 mmol/L (3.5-5.1); Sodium 140 mmol/L (135-145); Total Protein 7.8 g/dl (6.3-8.2); eGFR > 60.00
[2025-06-07 19:00] VITALS: BP 122/59
--- NOTE | 2025-06-07 19:20 | ED.GENMED ---
History of Present Illness
<Sheyla Barreto NP - Last Filed: 06/08/25 14:54>
General
Chief Complaint: Withdrawal Symptoms
Source: patient
Exam Limitations: none
Time Seen by Provider: 06/07/25 17:49
Nursing documentation reviewed up to this point in time: agreed with
History of Present Illness
History of Present Illness:
Patient to ED with complaint of nause, vomiting. States she stopped her lexapro 2 weeks ago because she does not want to take it any more. Started vomiting earlier this week. No fever/chills, recent illness. To ED accompanied by daughter.
Past History
<Sheyla Barreto NP - Last Filed: 06/08/25 14:54>
Past History
ED Past Medical History: HTN and Other (Renal calculus; migraine headaches)
ED Past Surgical History: Gynecological (tubal ) and Other (Hernia repair)
Social History
Tobacco: Non-smoker
Alcohol: None
Personal: Single
Living: with family
Employment: Not employed
Family History
Family History: Other (Noncontributory)
Review of Systems
<Sheyla Barreto NP - Last Filed: 06/08/25 14:54>
Review of Systems
Allergies reviewed?: Yes
All Other Systems: ROS reviewed and negative except as documented in HPI and ROS
Constitutional: Reports fatigue
EENT: Reports no symptoms
Respiratory: Reports no symptoms
Cardiac: Reports no symptoms
ABD/GI: Reports nausea and vomiting
: Reports no symptoms
Musculoskeletal: Reports no symptoms
Skin: Reports no symptoms
Neurological: Reports headache
Psychiatric: Reports no symptoms
Phy Exam
<Sheyla Barreto NP - Last Filed: 06/08/25 14:54>
General Physical Exam
General Presentation: well appearing and mild distress
General age: appears stated age
General Skin: warm and dry
General Habitus: normal
General Mental: alert
Eye Exam
Eye Exam: PERRL, EOMI, conjunctiva normal and globe normal
Cardiovascular Exam
Cardiovascular Exam: regular rate/rhythm and no edema
Pulmonary Exam
Pulmonary Exam: no respiratory distress
Gastrointestinal Exam
Gastrointestinal Exam: normal bowel sounds, non tender, soft, no organomegaly, non distended and no cva tenderness
Neurological Exam
Neurological Exam: alert, oriented x3, CN II-XII intact, no motor deficits, no sensory deficits and speech normal
Pastor Coma Scale
Eye Opening: Spontaneous
Verbal Response: Oriented
Motor Response: Obeys Commands
GCS Total Score: 15
Musculoskeletal Exam
Musculoskeletal Exam: full ROM and neuro vasc intact
Skin Exam
Skin Exam: normal color, warm/dry and no rash
Psychiatric Exam
Psychiatric Exam: normal mood/affect
<Breana Noyola, IT SALES REPRESENTATIVE - Last Filed: 06/07/25 22:50>
Leonard Coma Scale
GCS Total Score: 15
Course
<Sheyla Barreto, IT SALES REPRESENTATIVE - Last Filed: 06/08/25 14:54>
Orders/Labs/Results
Orders:
Orders
06/07/25 17:50
0.9% Sodium Chloride 1000 ml [Nss] 1,000 ml IV BOLUS
Ondansetron Injectable [Zofran] 4 mg IV NOW STA
Test Result ONCE
06/07/25 18:03
Complete Blood Count/With Diff Urgent
Comprehensive Metabolic Panel Urgent
HCG, Serum Qualitative Screen Urgent
06/07/25 19:41
diazePAM [Valium Injection] 2 mg IV NOW STA
06/07/25 20:12
CT Head W/o Iv Contrast Urgent
Comment:
Reason For Exam: pain
Ketorolac [Toradol] 30 mg IV NOW STA
06/07/25 20:56
Ondansetron Injectable [Zofran] 4 mg IV NOW STA
06/07/25 18:03
06/07/25 18:03
Vital Signs
Initial and Last Documented VS:
Initial Vital Signs
Temp Pulse Resp BP Pulse Ox
98.1 F 85 16 124/90 100
06/07/25 15:36 06/07/25 15:36 06/07/25 15:36 06/07/25 15:36 06/07/25 15:36
Last Documented Vital Signs
Temp Pulse Resp BP Pulse Ox
98.1 F 83 20 116/76 97
06/07/25 15:36 06/07/25 20:30 06/07/25 20:30 06/07/25 20:00 06/07/25 20:30
<Breana Noyola, IT SALES REPRESENTATIVE - Last Filed: 06/07/25 22:50>
Orders/Labs/Results
Orders:
Orders
06/07/25 17:50
0.9% Sodium Chloride 1000 ml [Nss] 1,000 ml IV BOLUS
Ondansetron Injectable [Zofran] 4 mg IV NOW STA
Test Result ONCE
06/07/25 18:03
Complete Blood Count/With Diff Urgent
Comprehensive Metabolic Panel Urgent
HCG, Serum Qualitative Screen Urgent
06/07/25 19:41
diazePAM [Valium Injection] 2 mg IV NOW STA
06/07/25 20:12
CT Head W/o Iv Contrast Urgent
Comment:
Reason For Exam: pain
Ketorolac [Toradol] 30 mg IV NOW STA
06/07/25 20:56
Ondansetron Injectable [Zofran] 4 mg IV NOW STA
06/07/25 18:03
06/07/25 18:03
Vital Signs
Initial and Last Documented VS:
Initial Vital Signs
Temp Pulse Resp BP Pulse Ox
98.1 F 85 16 124/90 100
06/07/25 15:36 06/07/25 15:36 06/07/25 15:36 06/07/25 15:36 06/07/25 15:36
Last Documented Vital Signs
Temp Pulse Resp BP Pulse Ox
98.1 F 83 20 116/76 97
06/07/25 15:36 06/07/25 20:30 06/07/25 20:30 06/07/25 20:00 06/07/25 20:30
<Breana Noyola IT SALES REPRESENTATIVE - Last Filed: 06/07/25 22:50>
MDM/Problems Addressed
MDM/Problems Addressed:
9:10 PM:
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 I explained at this to the patient that it is an incidental finding, nothing to do with her symptoms today and I gave
her a copy of the report to take with her to her PCP appointment at [facility] that she made for June 27.
Patient ambulated out with normal gait at discharge
<Sheyla Barreto NP - Last Filed: 06/08/25 14:54>
*Pulse Oximetry
SaO2: 100
Oxygen Mode of Delivery: Room air
<Breana Noyola IT SALES REPRESENTATIVE - Last Filed: 06/07/25 22:50>
*Pulse Oximetry
Patient hypoxic: no
*Critical Care Note
Total Time (30-74mins, 75-104mins- exclusive of procedures): Not Applicable
<Sheyla Barreto NP - Last Filed: 06/08/25 14:54>
Update Note
Update Note:
Patient to ED with report of nausea and vomiting that started earlier this week. SHe reports stopping her lexapro and feels she is withdrawing from med. Given IVF, zofran in ED with some improvement. NO vomiting while in ED. Tolerating po
fluids. Complained of dizziness. Given 2mg of valium with improvement. She then reported that she was developing a migraine. Given IV toradol. SHe then reported dizziness. CT of head in progress. She remains awake ane alert, non toxic
appearing. On phone texting. VSS, she remains afebrile. Spoke with her about resuming med and last prescribed dose and i would provide a taper schedule for her. SHe declines. Wants to continue to work through her symptoms. Will provider rx for
zofran and short course of ativan. Given instructions on s/s to return to ED and she is agreeable to plan.
ED Attending Note
<Sheyla Barreto NP - Last Filed: 06/08/25 14:54>
-
Portions of this chart may have been created with voice recognition software.� Occasional wrong word or��sound alike� substitutions may have occurred due to the inherent limitations of voice recognition software.
Discharge Plan
Departure
Patient Disposition: Home (Routine Discharge)
Date of Disposition: 06/07/25
Time of Disposition: 21:13
Patient with high blood pressure during this ER visit?: No
Condition: Good
Covid-19: Not Applicable
Discharge Problem:
Nausea & vomiting
Instructions: Nausea and Vomiting, Adult (DC), Migraine in adults
Prescriptions:
New
ondansetron 4 mg tablet,disintegrating
4 mg PO TID PRN (Reason: nausea and vomiting) 4 Days Qty: 12 0RF
lorazepam [Ativan] 0.5 mg tablet
0.5 mg PO BID PRN (Reason: nausea and vomiting) Qty: 5 0RF
No Action
amoxicillin-pot clavulanate 875-125 mg tablet
1 tab PO BID Qty: 14 0RF
doxycycline hyclate 100 mg capsule
100 mg PO BID Qty: 14 0RF
Referrals:
NONE,* [Family Provider, Internal Medicine]
Activity Restrictions/Additional Instructions:
Return to the emergency department immediately for any changes in/worsening of your symptoms.
The cyst seen on your CAT scan is an incidental finding, is benign and has nothing to do with your symptoms.
Take a copy of the CAT scan report with you to your doctor's appointment on June 27 just so here she has a record of it.
Interventions
Interventions:
*Risk Screen - Suicide Last Done: 06/07/25 15:36
*General Assessment Last Done: 06/07/25 15:36
*Neglect/Abuse Screening Last Done: 06/07/25 15:36
*ED- Fall Risk Assessment Last Done: 06/07/25 15:36
*ED COVID-19 Vaccine History Last Done: 06/07/25 15:36
*Nursing Disposition Last Done: 06/07/25 21:23
ED- Neurological Assessment Last Done: 06/07/25 18:09
ED-Psychological Assessment Last Done: 06/07/25 18:09
Discharge Date and Time
Discharge Date/Time: 06/07/25 21:24
Print Language: DOMINICAN
[2025-06-07] MEDS: VALIUM INJECTION 2 MG IV (19:53)
[2025-06-07 20:00] VITALS: BP 116/76
[2025-06-07] MEDS: TORADOL 30 MG IV (20:15)
== END 2025-06-07 21:24 | disposition home or self-care (01) ==
LOC: EMR 15:34
PROVIDERS: Nurse Practitioner; EMERGENCY PHYSICIAN Emergency Medicine
DX: R11.2 Nausea with vomiting, unspecified (principal); G43.909 Migraine, unspecified, not intractable, without status migrainosus; R42 Dizziness and giddiness; I10 Essential (primary) hypertension
CPT/HCPCS: 96374; 96375; 96361; 99284; 96376; 70450; 80053; 84703; 85025

== ENCOUNTER 2025-06-27 19:34 | Emergency (ER) | payer OTHER, SELFPAY ==
[2025-06-27 19:36] VITALS: BP 122/84
[2025-06-27 21:13] VITALS: BP 128/73
[2025-06-27 21:18] VITALS: BMI 27.5
--- NOTE | 2025-06-27 22:14 | ED.GENMED ---
History of Present Illness
General
Chief Complaint: Back Pain
Source: patient
Exam Limitations: none
Time Seen by Provider: 06/27/25 21:33
Nursing documentation reviewed up to this point in time: agreed with
History of Present Illness
History of Present Illness:
Patient is a 34-year-old female presents to the ER for evaluation of back pain. Patient has chronic back pain since 2019 however for the past 5 days has had intense right low back pain which radiates to her thighs. She denies any recent injury
fall. She also complains of bilateral thigh numbness when she ambulates and numbness to her left lateral ankle in addition patient reports for the past 3 days she has had 3 episodes of urinary incontinence. At that time she reports she simply
incontinent of urine but was not aware that she had to urinate she did not feel an urgency to urinate.
She denies any recent fever chills. She denies any saddle paresthesia. She denies any urinary frequency urgency or dysuria. Denies any constipation diarrhea. She has been taking naproxen and muscle laxer without relief.
Past History
Past History
ED Past Medical History: HTN and Other (Renal calculus; migraine headaches)
ED Past Surgical History: Gynecological (tubal ) and Other (Hernia repair)
Social History
Tobacco: Non-smoker
Alcohol: None
Personal: Single
Living: with family
Employment: Not employed
Family History
Family History: Other (Noncontributory)
Phy Exam
General Physical Exam
General Presentation: no apparent distress
General age: appears stated age
General Skin: warm and dry
General Habitus: normal
General Mental: alert
General Hydration: appears well hydrated
Neurological Exam
Neurological Exam: alert, oriented x3, no motor deficits, no sensory deficits and other (Bilateral patellar reflexes, normal dorsiflexion plantarflexion able to heel toe walk; nml rectal tone and sensation ; neg straight leg raise b/l )
Musculoskeletal Exam
Musculoskeletal Exam: other (+ low back pain with changing positions )
Skin Exam
Skin Exam: normal color and warm/dry
Psychiatric Exam
Psychiatric Exam: normal mood/affect
Course
Orders/Labs/Results
Orders:
Orders
06/27/25 22:09
Test Result ONCE
06/27/25 22:20
HCG, Urine Qualitative Screen Urgent
Date Specimen was Collected: 06/27/25
Time Specimen was Collected: 22:18
UA Reflex to Culture [Urinalysis Reflex To Culture] Urgent
Date Specimen was Collected: 06/27/25
Time Specimen was Collected: 22:18
Urine Microscopic Reflex Cult Urgent
Urine Culture Urgent
BERT Source: U
Specimen Description:
Date Specimen was Collected: 06/27/25
Time Specimen was Collected: 22:18
06/27/25 23:29
Ketorolac [Toradol] 30 mg IM NOW STA
Lidocaine [Lidocaine 4% Patch] 1 patch TOPICAL NOW STA
Apply Lidocaine patch(s) to:: right low back
06/27/25 23:30
Acetaminophen [Tylenol] 1,000 mg PO NOW STA
Prednisone [Deltasone] 50 mg PO NOW STA
06/28/25 23:41
MR Lumbar Without Contrast Stat
Reason For Exam: low back pain w/ incontinence
OK for patient to be off Cardiac Monitoring for MRI: Yes
Recent pill cam endoscopy?: No
Abnormal Lab Results
06/27/25
22:20
Leukocyte Esterase Rfl 3+ A
(Negative)
Urine RBC 3-6 A /HPF
(0-2)
Urine Bacteria (Reflex) Moderate A
(Negative)
Urine Albumin (Reflex) 1+ A
(Neg - Trace)
Vital Signs
Initial and Last Documented VS:
Initial Vital Signs
Temp Pulse Resp BP Pulse Ox
98.5 F 92 16 122/84 96
06/27/25 19:36 06/27/25 19:36 06/27/25 19:36 06/27/25 19:36 06/27/25 19:36
Last Documented Vital Signs
Temp Pulse Resp BP Pulse Ox
98.0 F 74 20 125/70 100
06/27/25 23:41 06/27/25 23:41 06/27/25 23:41 06/27/25 23:41 06/27/25 23:41
Knotting Machine Operator consulted with Physician
Knotting Machine Operator consulted with physician?: Yes
Name of Physician Consulted: Macey
MDM/Problems Addressed
Differential Diagnosis Includes:
Not limited to cauda equina, sciatica exacerbation patient close chronic pain
MDM/Problems Addressed:
As documented patient is a 34-year-old female with intermittent chronic back pain since 2019 however has had increased back pain for the past 5 days. His back pain is associated with numbness and tingling to her thighs and left ankle patient has
had 3 episodes of urinary incontinence over the past several days without associated urgency.
She denies any saddle paresthesia. On exam she does have normal reflexes is able to heel toe walk and does have good rectal tone however with concerning incontinence case discussed with neurosurgery as well as radiology. MRI ordered and pending at
this time.
Patient did drive here and was medicated with Toradol steroids lidocaine patch and Tylenol.
Patient resting remains in no acute distress MRI reviewed there is no high-grade spinal canal stenosis patient has multiple disc bulges. Reviewed with ED physician .will refer to neurosurgery. She does have an orthopedic appointment scheduled at
[facility] but not until July we will have her call to expedite that appointment will also refer to urology. Will DC with muscle laxer and a steroid taper
Chronic conditions affecting care:
chronic back issues
*Radiology
Radiology exam reviewed: radiology read reviewed
*Pulse Oximetry
SaO2: 99
Oxygen Mode of Delivery: Room air
Patient hypoxic: no
*Critical Care Note
Total Time (30-74mins, 75-104mins- exclusive of procedures): Not Applicable
Patient Management
Discussion with other providers: Mental Health Aides Teacher (Dr Baez )
ED Attending Note
-
Portions of this chart may have been created with voice recognition software.� Occasional wrong word or��sound alike� substitutions may have occurred due to the inherent limitations of voice recognition software.
Discharge Plan
Departure
Patient Disposition: Home (Routine Discharge)
Date of Disposition: 06/28/25
Time of Disposition: 03:23
Patient with high blood pressure during this ER visit?: No
Condition: Fair
Covid-19: Not Applicable
Discharge Problem:
Low back pain, Radicular pain
Instructions: Low Back Pain (DC), Radiculopathy (DC)
Prescriptions:
New
prednisone 10 mg Tablet
See Rx Instructions .ROUTE .COMPLEX Qty: 30 0RF
Rx Instructions:
Take By Mouth:
40 mg daily x3 days, 30 mg daily x3 days,
20 mg daily x3 days, 10 mg daily x3 days.
cyclobenzaprine 10 mg tablet
10 mg PO TID PRN (Reason: pain) Qty: 10 0RF
No Action
amoxicillin-pot clavulanate 875-125 mg tablet
1 tab PO BID Qty: 14 0RF
doxycycline hyclate 100 mg capsule
100 mg PO BID Qty: 14 0RF
ondansetron 4 mg tablet,disintegrating
4 mg PO TID PRN (Reason: nausea and vomiting) 4 Days Qty: 12 0RF
lorazepam [Ativan] 0.5 mg tablet
0.5 mg PO BID PRN (Reason: nausea and vomiting) Qty: 5 0RF
Referrals:
Penny Nieto, [Family Provider, Family Practice]
Bean Baez DO [Active, Neurosurgery]
Shira Servin DO [Active, Urology]
Activity Restrictions/Additional Instructions:
As discussed please take steroids as prescribed. You may take muscle laxer as needed. He may also take Tylenol. Follow-up with neurosurgeon as well as your family doctor lab specialist in the next several days as well as urology. Please
call to make an appointment. Return if any worsening of symptoms.
Interventions
Interventions:
*Risk Screen - Suicide Last Done: 06/27/25 21:21
*General Assessment Last Done: 06/27/25 21:20
*Neglect/Abuse Screening Last Done: 06/27/25 21:21
*ED- Fall Risk Assessment Last Done: 06/27/25 21:19
*ED COVID-19 Vaccine History Last Done: 06/27/25 21:19
*ED Influenza Vaccine History Last Done: 06/27/25 21:19
ED-Musculoskeletal Assessment Last Done: 06/27/25 21:15
Discharge Date and Time
Print Language: ROMANIAN
[2025-06-27 22:30] LABS: Urine Character Slightly Cloudy (Clear)
[2025-06-27 22:31] LABS: HCG, Urine Qualitative Screen Negative
[2025-06-27 22:37] LABS: Urine Squamous Cell >30 /LPF (Few)
[2025-06-27] MEDS: DELTASONE 50 MG PO (23:36)
[2025-06-27] MEDS: TYLENOL 1000 MG PO (23:36)
[2025-06-27] MEDS: TORADOL 30 MG IM (23:37)
[2025-06-27] MEDS: LIDOCAINE 4% PATCH 1 PATCH TOPICAL (23:37)
[2025-06-27 23:41] VITALS: BP 125/70
== END 2025-06-28 03:45 | disposition home or self-care (01) ==
LOC: EMR 19:34
PROVIDERS: Nurse Practitioner; EMERGENCY PHYSICIAN Emergency Medicine; FAMILY PHYSICIAN Family Medicine
DX: M54.50 Low back pain, unspecified (principal); M54.10 Radiculopathy, site unspecified; I10 Essential (primary) hypertension; G89.29 Other chronic pain
CPT/HCPCS: 99284; 96372; 72148; 81003; 81015; 81025; 87086